=== PATIENT | female | born 1995 | race African-American/Black ===

== ENCOUNTER 2017-08-14 21:04 | Inpatient (IN) | payer OTHER ==
[2017-08-14] MEDS ORDERED: Oxytocin/0.9 % Sodium Chloride 30 UNIT/500 ML BAG IV SCH (23:45)
[2017-08-14] MEDS ORDERED: Lactated Ringers 1,000 ML IV SCH (23:45)
[2017-08-14] MEDS ORDERED: Lidocaine 1% 50 ML MDV INJECT PRN (23:51)
[2017-08-14] MEDS ORDERED: Sodium Chloride 0.9% 10 ML Syringe FLUSH PRN (23:51)
[2017-08-14] MEDS ORDERED: Sodium Chloride 0.9% 2.5 ML Syringe FLUSH PRN (23:51)
[2017-08-14] MEDS ORDERED: Misoprostol 200 MCG Tab PO PRN (23:51)
[2017-08-14] MEDS ORDERED: Water For Irrigation,Sterile 1,000 ML Container IRR PRN (23:51)
[2017-08-14] MEDS ORDERED: Butorphanol 1 MG/ML SDV IVPUSH PRN (23:51)
[2017-08-14] MEDS ORDERED: Nalbuphine 10 MG/1 ML Vial IVPUSH PRN (23:51)
[2017-08-14] MEDS ORDERED: Methylergonovine 0.2 MG/1 ML Amp IM PRN (23:51)
[2017-08-14] MEDS ORDERED: Carboprost Tromethamine 250 MCG/1 ML Amp IM PRN (23:51)
[2017-08-15] MEDS ORDERED: Ropivacaine 0.2% 2 MG/ML 20 ML SDV ONE (08:09)
[2017-08-15] MEDS ORDERED: Ropivacaine 100 ML ONE (08:09)
[2017-08-15] MEDS ORDERED: fentaNYL 100 MCG/2 ML SDV ONE (08:09)
--- NOTE | 2017-08-15 08:09 | PCM.LDHP ---
L&D History of Present Illness - General Date of Service: 08/15/17 Admit Problem/Dx: Patient Status Order with Admit Dx/Problem 08/14/17 23:52 Patient Status [ADT] Routine Admission Diagnosis/Problem Admission Diagnosis/Problem 08/15/17 08:06 22yo EDC 08/20/2017 39 2/7wks O+, RI, GBS neg. 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: Musculoskeletal History: Reports: None Neurological History: Reports: None Psychiatric History: Reports: None Endocrine/Metabolic History: Reports: None Hematologic History: Reports: None Immunologic History: Reports: None Oncologic (Cancer) History: Reports: None Dermatologic History: Reports: None - Infectious Disease History Infectious Disease History: Reports: None Social & Family History - Family History OBGYN: Reports: - Tobacco Use Smoking Status *Q: Never Smoker Second Hand Smoke Exposure: Yes - Caffeine Use Caffeine Use: Reports: Coffee, Soda, Tea - Recreational Drug Use Recreational Drug Use: No H&P Review of Systems - Review of Systems: Review Of Systems: See Below General: Reports: No Symptoms HEENT: Reports: No Symptoms Pulmonary: Reports: No Symptoms Cardiovascular: Reports: No Symptoms Gastrointestinal: Reports: No Symptoms Genitourinary: Reports: No Symptoms Musculoskeletal: Reports: No Symptoms Skin: Reports: No Symptoms Psychiatric: Reports: No Symptoms Neurological: Reports: No Symptoms Hematologic/Lymphatic: Reports: No Symptoms Immunologic: Reports: No Symptoms L&D Exam - Exam Exam: See Below - Vital Signs Weight: 72.756 kg - OB Specific Contraction Intensity: Moderate Movement: Active Heart Tones: Present Heart Rate (FHR) Variability: Moderate (6-25 bmp) Presentation: Vertex - Exam General: Alert, Oriented, Cooperative HEENT: Hearing Intact Lungs: Normal Respiratory Effort GI/Abdominal Exam: Soft, Non-Tender (gravid) Rectal Exam: Deferred Genitourinary: Normal external exam, Normal speculum exam, Cervical dilitation Back Exam: Full Range of Motion Extremities: Normal Range of Motion, Non-Tender, No Pedal Edema, Normal Capillary Refill Skin: Warm, Dry, Intact Neurological: Reflexes Equal Bilateral, Normal Speech, Normal Tone Psychiatric: Alert, Normal Affect, Normal Mood - Patient Data Lab Results Last 24 hrs: Laboratory Results - last 24 hr 08/15/17 08/15/17 Range/Units 00:35 00:35 WBC 6.79 (4.0-11.0) K/uL RBC 4.30 (4.30-5.90) M/uL Hgb 10.9 L (12.0-16.0) g/dL Hct 33.4 L (36.0-46.0) % MCV 77.7 L (80.0-98.0) fL MCH 25.3 L (27.0-32.0) pg MCHC 32.6 (31.0-37.0) g/dL RDW Std Deviation 41.3 (28.0-62.0) fl RDW Coeff of Campos 15 (11.0-15.0) % Plt Count 240 (150-400) K/uL MPV 10.20 (7.40-12.00) fL Nucleated RBC % 0.0 /100WBC Nucleated RBCs # 0 K/uL Blood Type O POSITIVE Antibody Screen NEGATIVE Result Diagrams: 08/15/17 00:35 - Problem List (1) Supervision of normal IUP (intrauterine ) in multigravida SNOMED Code(s): 773424864, 452528901 ICD Code: Z34.80 - ENCOUNTER FOR SUPRVSN OF NORMAL , UNSP TRIMESTER Status: Acute Priority: High Current Visit: Yes Qualifiers: Trimester: third trimester Qualified Code(s): Z34.83 - Encounter for supervision of other normal , third trimester Problem List Initiated/Reviewed/Updated: Yes Orders Last 24hrs: Active Orders 24 hr Category Date Time Status Patient Status [ADT] Routine ADT 08/14/17 23:52 Active Heart Tones [RC] CONTINUOUS Care 08/14/17 23:52 Active Non Stress Test [RC] PER UNIT ROUTINE Care 08/14/17 23:52 Active May Shower [RC] ASDIRECTED Care 08/14/17 23:52 Active Notify Provider [RC] PRN Care 08/14/17 23:52 Active Up ad Rubina [RC] ASDIRECTED Care 08/14/17 23:52 Active Vaginal Exam [RC] PRN Care 08/14/17 23:52 Active Vital Signs [RC] PER UNIT ROUTINE Care 08/14/17 23:52 Active Clear Liquid Diet [DIET] Diet 08/15/17 Breakfast Active Butorphanol [Stadol] Med 08/14/17 23:51 Active 1 mg IVPUSH Q1H PRN Carboprost Tromethamine [Hemabate DS] Med 08/14/17 23:51 Active 250 mcg IM ASDIRECTED PRN Lactated Ringers [Ringers, Lactated] 1,000 ml Med 08/14/17 23:45 Active IV ASDIRECTED Lidocaine 1% [Xylocaine 1%] Med 08/14/17 23:51 Active 50 ml INJECT .ONCE PRN Methylergonovine [Methergine] Med 08/14/17 23:51 Active 0.2 mg IM ASDIRECTED PRN Misoprostol [Cytotec] Med 08/14/17 23:51 Active 200 mcg PO .ONCE PRN Nalbuphine [Nubain] Med 08/14/17 23:51 Active 10 mg IVPUSH Q1H PRN Oxytocin/0.9 % Sodium Chloride [Oxytocin 30 Unit/500 ML Med 08/14/17 23:45 Active -NS] 30 unit in 500 ml IV TITRATE Sodium Chloride 0.9% [Saline Flush] Med 08/14/17 23:51 Active 10 ml FLUSH ASDIRECTED PRN Sodium Chloride 0.9% [Saline Flush] Med 08/14/17 23:51 Active 2.5 ml FLUSH ASDIRECTED PRN Water For Irrigation,Sterile [Sterile Water for Med 08/14/17 23:51 Active Irrigation] 1,000 ml IRR ASDIRECTED PRN Scalp Electrode [WOMSER] Per Unit Routine Oth 08/14/17 23:52 Ordered Peripheral IV Insertion Adult [OM.PC] Routine Oth 08/14/17 23:52 Ordered Resuscitation Status Routine Resus Stat 08/14/17 23:51 Ordered Medication Orders Butorphanol Tartrate (Stadol) 1 mg IVPUSH Q1H PRN PRN Reason: Pain Carboprost Tromethamine (Hemabate Ds) 250 mcg IM ASDIRECTED PRN PRN Reason: Post Hemorrhage Lactated Ringer's (Ringers, Lactated) 1,000 mls @ 150 mls/hr IV ASDIRECTED LAVELLE Oxytocin/Sodium Chloride (Oxytocin 30 Unit/500 Ml-Ns) 30 unit in 500 mls @ 999 mls/hr IV TITRATE [place] Lidocaine HCl (Xylocaine 1%) 50 ml INJECT .ONCE PRN PRN Reason: Laceration repair Methylergonovine Maleate (Methergine) 0.2 mg IM ASDIRECTED PRN PRN Reason: Post Hemorrhage Misoprostol (Cytotec) 200 mcg PO .ONCE PRN PRN Reason: Post Hemorrhage Nalbuphine HCl (Nubain) 10 mg IVPUSH Q1H PRN PRN Reason: Pain (severe 7-10) Sodium Chloride (Saline Flush) 10 ml FLUSH ASDIRECTED PRN PRN Reason: Keep Vein Open Sodium Chloride (Saline Flush) 2.5 ml FLUSH ASDIRECTED PRN PRN Reason: Keep Vein Open Sterile Water (Sterile Water For Irrigation) 1,000 ml IRR ASDIRECTED PRN PRN Reason: delivery Assessment/Plan Comment:: IOL A: 22yo EDC 08/20/2017 39 2/7wks O+, RI, GBS neg. IOL term P: Admit for IOL term , epidural prn, anticipate . Dr Chatman updated on pt status.
--- NOTE | 2017-08-15 08:49 | PCM.PREANE ---
Preanesthetic Assessment - Procedure Proposed Procedure: labor epidural - Anesthesia/Transfusion/Family Hx Anesthesia History: Prior Anesthesia Without Reaction (previous epidural) Family History of Anesthesia Reaction: No Transfusion History: No Prior Transfusion(s) Intubation History: Unknown - Review of Systems General: No Symptoms Pulmonary: No Symptoms Cardiovascular: No Symptoms Gastrointestinal: No Symptoms Neurological: No Symptoms Other: Reports: None - Physical Assessment NPO Status Date: 08/15/17 NPO Status Time: 08:48 (clear liquids) Height: 1.7 m Weight: 72.756 kg ASA Class: 2 Mental Status: Alert & Oriented x3 Airway Class: Mallampati = 1 Dentition: Reports: Normal Dentition Thyro-Mental Finger Breadths: 3 Mouth Opening Finger Breadths: 3 ROM/Head Extension: Full Lungs: Clear to Auscultation Cardiovascular: Regular Rate - Lab Values: Laboratory Last Values WBC 6.79 K/uL (4.0-11.0) 08/15/17 00:35 RBC 4.30 M/uL (4.30-5.90) 08/15/17 00:35 Hgb 10.9 g/dL (12.0-16.0) L 08/15/17 00:35 Hct 33.4 % (36.0-46.0) L 08/15/17 00:35 MCV 77.7 fL (80.0-98.0) L 08/15/17 00:35 MCH 25.3 pg (27.0-32.0) L 08/15/17 00:35 MCHC 32.6 g/dL (31.0-37.0) 08/15/17 00:35 RDW Std Deviation 41.3 fl (28.0-62.0) 08/15/17 00:35 RDW Coeff of Campos 15 % (11.0-15.0) 08/15/17 00:35 Plt Count 240 K/uL (150-400) 08/15/17 00:35 MPV 10.20 fL (7.40-12.00) 08/15/17 00:35 Nucleated RBC % 0.0 /100WBC 08/15/17 00:35 Nucleated RBCs # 0 K/uL 08/15/17 00:35 Blood Type O POSITIVE 08/15/17 00:35 Antibody Screen NEGATIVE 08/15/17 00:35 - Allergies Allergies/Adverse Reactions: Allergies Allergy/AdvReac Type Severity Reaction Status Date / Time No Known Allergies Allergy Verified 04/08/16 19:11 - Blood Blood Available: Yes Product(s) Available: PRBC - Anesthesia Plan Pre-Op Medication Ordered: None - Acknowledgements Anesthesia Type Planned: Epidural Pt an Appropriate Candidate for the Planned Anesthesia: Yes Alternatives and Risks of Anesthesia Discussed w Pt/Guardian: Yes Pt/Guardian Understands and Agrees with Anesthesia Plan: Yes PreAnesthesia Questionnaire HEENT History: Reports: None Cardiovascular History: Reports: None Respiratory History: Reports: None Gastrointestinal History: Reports: GERD Genitourinary History: Reports: None [employer] History: Reports: Musculoskeletal History: Reports: None Neurological History: Reports: None Psychiatric History: Reports: None Endocrine/Metabolic History: Reports: None Hematologic History: Reports: None Immunologic History: Reports: None Oncologic (Cancer) History: Reports: None Dermatologic History: Reports: None - Infectious Disease History Infectious Disease History: Reports: None - SUBSTANCE USE Smoking Status *Q: Never Smoker Second Hand Smoke Exposure: Yes Recreational Drug Use History: No - CURRENT (IN HOUSE) MEDS Current Meds: Current Medications Butorphanol Tartrate (Stadol) 1 mg IVPUSH Q1H PRN PRN Reason: Pain Carboprost Tromethamine (Hemabate Ds) 250 mcg IM ASDIRECTED PRN PRN Reason: Post Hemorrhage Lactated Ringer's (Ringers, Lactated) 1,000 mls @ 150 mls/hr IV ASDIRECTED [facility] Last Admin: 08/15/17 08:38 Dose: 150 mls/hr Oxytocin/Sodium Chloride (Oxytocin 30 Unit/500 Ml-Ns) 30 unit in 500 mls @ 999 mls/hr IV TITRATE [facility] Lidocaine HCl (Xylocaine 1%) 50 ml INJECT .ONCE PRN PRN Reason: Laceration repair Methylergonovine Maleate (Methergine) 0.2 mg IM ASDIRECTED PRN PRN Reason: Post Hemorrhage Misoprostol (Cytotec) 200 mcg PO .ONCE PRN PRN Reason: Post Hemorrhage Nalbuphine HCl (Nubain) 10 mg IVPUSH Q1H PRN PRN Reason: Pain (severe 7-10) Sodium Chloride (Saline Flush) 10 ml FLUSH ASDIRECTED PRN PRN Reason: Keep Vein Open Sodium Chloride (Saline Flush) 2.5 ml FLUSH ASDIRECTED PRN PRN Reason: Keep Vein Open Sterile Water (Sterile Water For Irrigation) 1,000 ml IRR ASDIRECTED PRN PRN Reason: delivery Discontinued Medications Fentanyl (Sublimaze) Confirm Administered Dose 300 mcg .ROUTE .STK-MED ONE Stop: 08/15/17 08:10 Ropivacaine (Naropin 0.2%) Confirm Administered Dose 100 mls @ as directed .ROUTE .STK-MED ONE Stop: 08/15/17 08:10 Ropivacaine (Naropin 0.2%) Confirm Administered Dose 20 ml .ROUTE .STK-MED ONE Stop: 08/15/17 08:10
--- NOTE | 2017-08-15 08:58 | PCM.PRNOTE ---
- Free Text/Narrative Note: asked to place epidural for labor pain. Pt identified and plan discussed. discussed risks and expectations including nerve pain, nerve damage, bleeding and unsuccessful epidural placement. Pt agrees to proceed. sitting up sterile betadine prep x 3 with sterile drape. 1% lidocaine injected SQ. Pt cries in pain with 26 gauge needle SQ. #17 touhy advanced with ANTONETTE saline at L4. pt crying uncontrollably with any movement. difficult to assess what she is feeling. counseled to cooperate so can assess between pressure pain and/ or paresthesia. Needle advanced to approximately 5 cm. no discernable paresthesia or heme. catheter placed easily to 10 cm at skin. test dose 3 ml 1.5% lidocaine with epinephrine 1:200,000. neg. reaction. pt supine, bolus with ropivicaine 0.2 % and fentanyl 100 mcg. total of 5 ml given in divided doses. Pt contractions far apart, but level noted to be t 10 bilat. PCEA started at 8 ml/hr of 0.2% ropivicaine and fentanyl 2 mcg/ml. bolus dosing set at 6 ml every 15 min with hourly lockout of 32 ml. PCEA education done.
[2017-08-15] MEDS ORDERED: Oxytocin/0.9 % Sodium Chloride 30 UNIT/500 ML BAG IV SCH (10:30)
[2017-08-15] MEDS ORDERED: Witch Hazel Medicated Pads 40/Jar TOP PRN (15:18)
[2017-08-15] MEDS ORDERED: Ibuprofen 400 MG Tab PO PRN (15:18)
[2017-08-15] MEDS ORDERED: Lanolin 100% Cream 7 GM Tube TOP PRN (15:18)
[2017-08-15] MEDS ORDERED: Docusate Sodium 100 MG Cap PO PRN (15:18)
[2017-08-15] MEDS ORDERED: Acetaminophen 500 MG Tab PO PRN ×2 (15:18)
[2017-08-15] MEDS ORDERED: Bisacodyl 10 MG Supp RECTAL PRN (15:18)
[2017-08-15] MEDS ORDERED: Benzocaine/Menthol 20%-0.5% Spray 78 GM Cannister TOP PRN (15:18)
--- NOTE | 2017-08-15 15:25 | PCM.DEL ---
L & D Note - General Info Date of Service: 08/15/17 Mother's Due Date: 08/20/17 - Delivery Note Labor: Augmented by Oxytocin Cervical Ripening Method: Misoprostil Delivery Outcome: Livebirth Delivery Method: Spontaneous Vaginal Delivery-Single Presentation: Vertex Nuchal Cord: None Anesthesia Type: Epidural Episiotomy Type: None Laceration: None Placenta: Intact, Spontaneous Cord: 3 Vessels Resuscitation Needed: No Score 1 min: 9 Score 5 min: 9 - General Info Date of Service: 08/15/17 Admission Dx/Problem (Free Text): Patient Status Order with Admit Dx/Problem 08/14/17 23:52 Patient Status [ADT] Routine Admission Diagnosis/Problem Admission Diagnosis/Problem 08/15/17 08:06 22yo EDC 08/20/2017 39 2/7wks O+, RI, GBS neg. IOL term Subjective Update: 22 year old female that is now a [id number] after of a term viable male . No complications during delivery. scores were 9 and 9 respectively at 1 and 5 minutes. Mother was RI, O+, GBS -. Functional Status: Reports: Pain Controlled - Review of Systems General: Reports: No Symptoms Pulmonary: Reports: No Symptoms Cardiovascular: Reports: No Symptoms Musculoskeletal: Reports: Other (bilateral leg paresthesia secondary to epidural ) Neurological: Reports: No Symptoms Psychiatric: Reports: No Symptoms - Patient Data Weight - Most Recent: 160 lb 6.4 oz Lab Results Last 24 Hours: Laboratory Results - last 24 hr 08/15/17 08/15/17 Range/Units 00:35 00:35 WBC 6.79 (4.0-11.0) K/uL RBC 4.30 (4.30-5.90) M/uL Hgb 10.9 L (12.0-16.0) g/dL Hct 33.4 L (36.0-46.0) % MCV 77.7 L (80.0-98.0) fL MCH 25.3 L (27.0-32.0) pg MCHC 32.6 (31.0-37.0) g/dL RDW Std Deviation 41.3 (28.0-62.0) fl RDW Coeff of Campos 15 (11.0-15.0) % Plt Count 240 (150-400) K/uL MPV 10.20 (7.40-12.00) fL Nucleated RBC % 0.0 /100WBC Nucleated RBCs # 0 K/uL Blood Type O POSITIVE Antibody Screen NEGATIVE Med Orders - Current: Current Medications Acetaminophen (Tylenol Extra Strength) 500 mg PO Q4H PRN PRN Reason: Pain Acetaminophen (Tylenol Extra Strength) 1,000 mg PO Q4H PRN PRN Reason: Pain Benzocaine/Menthol (Dermoplast Pain Relief 20%-0.5% [place]) 78 gm TOP ASDIRECTED PRN PRN Reason: Perineal Comfort Measure Bisacodyl (Dulcolax) 10 mg RECTAL .ONCE PRN PRN Reason: Constipation Docusate Sodium (Colace) 100 mg PO BID PRN PRN Reason: Constipation Emollient Ointment (Lansinoh Hpa) 0 gm TOP ASDIRECTED PRN PRN Reason: Sore Nipples Ibuprofen (Motrin) 400 mg PO Q4H PRN PRN Reason: Pain Ibuprofen (Motrin) 800 mg PO Q6H PRN PRN Reason: Pain Oxycodone HCl (Oxycodone) 5 mg PO Q2H PRN PRN Reason: Pain Witch Ozila (Tucks) 1 pad TOP ASDIRECTED PRN PRN Reason: comfort care Discontinued Medications Butorphanol Tartrate (Stadol) 1 mg IVPUSH Q1H PRN PRN Reason: Pain Carboprost Tromethamine (Hemabate Ds) 250 mcg IM ASDIRECTED PRN PRN Reason: Post Hemorrhage Fentanyl (Sublimaze) Confirm Administered Dose 300 mcg .ROUTE .STK-MED ONE Stop: 08/15/17 08:10 Lactated Ringer's (Ringers, Lactated) 1,000 mls @ 150 mls/hr IV ASDIRECTED LAVELLE Last Admin: 08/15/17 08:38 Dose: 150 mls/hr Oxytocin/Sodium Chloride (Oxytocin 30 Unit/500 Ml-Ns) 30 unit in 500 mls @ 999 mls/hr IV TITRATE LAVELLE Ropivacaine (Naropin 0.2%) Confirm Administered Dose 100 mls @ as directed .ROUTE .STK-MED ONE Stop: 08/15/17 08:10 Oxytocin/Sodium Chloride (Oxytocin 30 Unit/500 Ml-Ns) 30 unit in 500 mls @ 2 mls/hr IV TITRATE LAVELLE; 2 MUNITS/MIN PRN Reason: Protocol Last Infusion: 08/15/17 13:30 Dose: 12 munits/min, 12 mls/hr Lidocaine HCl (Xylocaine 1%) 50 ml INJECT .ONCE PRN PRN Reason: Laceration repair Methylergonovine Maleate (Methergine) 0.2 mg IM ASDIRECTED PRN PRN Reason: Post Hemorrhage Misoprostol (Cytotec) 200 mcg PO .ONCE PRN PRN Reason: Post Hemorrhage Nalbuphine HCl (Nubain) 10 mg IVPUSH Q1H PRN PRN Reason: Pain (severe 7-10) Ropivacaine (Naropin 0.2%) Confirm Administered Dose 20 ml .ROUTE .[facility] ONE Stop: 08/15/17 08:10 Sodium Chloride (Saline Flush) 10 ml FLUSH ASDIRECTED PRN PRN Reason: Keep Vein Open Sodium Chloride (Saline Flush) 2.5 ml FLUSH ASDIRECTED PRN PRN Reason: Keep Vein Open Sterile Water (Sterile Water For Irrigation) 1,000 ml IRR ASDIRECTED PRN PRN Reason: delivery - Exam General: Alert, Oriented, Cooperative, No Acute Distress Lungs: Normal Respiratory Effort Cardiovascular: Regular Rate, Regular Rhythm (Female) Exam: Normal External Exam, Normal Bimanual Exam Extremities: Normal Inspection, Normal Range of Motion Skin: Warm, Dry, Intact Neurological: No New Focal Deficit Psy/Mental Status: Alert, Normal Affect, Normal Mood - Problem List & Annotations (1) (normal spontaneous vaginal delivery) SNOMED Code(s): 11857827 Code(s): O80 - ENCOUNTER FOR FULL-TERM UNCOMPLICATED DELIVERY Status: Acute Priority: High Current Visit: Yes - Problem List Review Problem List Initiated/Reviewed/Updated: Yes - My Orders Last 24 Hours: My Active Orders 08/15/17 15:18 Patient Status [ADT] Routine May Shower [RC] ASDIRECTED Up ad Rubina [RC] ASDIRECTED Vital Signs [RC] PER UNIT ROUTINE Acetaminophen [Tylenol Extra Strength] 1,000 mg PO Q4H PRN Acetaminophen [Tylenol Extra Strength] 500 mg PO Q4H PRN Benzocaine/Menthol [Dermoplast Pain Relief 20%-0.5% [place]] 78 gm TOP ASDIRECTED PRN Bisacodyl [Dulcolax] 10 mg RECTAL .ONCE PRN Docusate Sodium [Colace] 100 mg PO BID PRN Ibuprofen [Motrin] 400 mg PO Q4H PRN Ibuprofen [Motrin] 800 mg PO Q6H PRN Lanolin [Lansinoh HPA] See Dose Instructions TOP ASDIRECTED PRN Witch Zoila [Tucks] 1 pad TOP ASDIRECTED PRN oxyCODONE 5 mg PO Q2H PRN Assess Lochia [WOMSER] Per Unit Routine Assess Uterine Involution [WOMSER] Per Unit Routine Peripheral IV Discontinue [OM.PC] Routine Resuscitation Status Routine 08/15/17 Lunch Regular Diet [DIET] - Plan Plan:: IOL A: 22yo EDC 08/20/2017 39 2/7wks O+, RI, GBS neg. IOL term P: Admit for IOL term , epidural prn, anticipate . Dr Chatman updated on pt status. Delivery: A: 22 year old female that is now a [id number] after of a term viable male . No complications during delivery. scores were 9 and 9 respectively at 1 and 5 minutes. Mother was RI, O+, GBS -. [place] was dried after delivery and immediately placed on mothers chest. Mother and were left bonding well. P: Routine post- care
--- NOTE | 2017-08-15 21:30 | PCM48HPAN ---
Post Anesthesia Note - EVALUATION WITHIN 48HRS OF ANESTHETIC Vital Signs in Normal Range: Yes Patient Participated in Evaluation: Yes Respiratory Function Stable: Yes Airway Patent: Yes Cardiovascular Function Stable: Yes Hydration Status Stable: Yes Pain Control Satisfactory: Yes Nausea and Vomiting Control Satisfactory: Yes Mental Status Recovered: Yes
[2017-08-15] MEDS: oxyCODONE 5 MG Tab PO PRN (23:25)
[2017-08-15] MEDS: Ibuprofen 800 MG Tab PO PRN (23:26)
[2017-08-16] MEDS: oxyCODONE 5 MG Tab PO PRN ×3 (04:33→14:45)
--- NOTE | 2017-08-16 07:30 | PCM.DCSUM1 ---
Discharge Summary - Hospital Course Free Text/Narrative:: Discharge home with . Follow up in 6 weeks for post . Come sooner if needed. - Discharge Data Discharge Date: 08/16/17 Discharge Disposition: Home, Self-Care 01 Condition: Good - Discharge Diagnosis/Problem(s) (1) Supervision of normal IUP (intrauterine ) in multigravida SNOMED Code(s): 351933646, 002403194 ICD Code: Z34.80 - ENCOUNTER FOR SUPRVSN OF NORMAL , UNSP TRIMESTER Status: Acute Priority: High Current Visit: Yes Qualifiers: Trimester: third trimester Qualified Code(s): Z34.83 - Encounter for supervision of other normal , third trimester (2) (normal spontaneous vaginal delivery) SNOMED Code(s): 23004278 ICD Code: O80 - ENCOUNTER FOR FULL-TERM UNCOMPLICATED DELIVERY Status: Acute Priority: High Current Visit: Yes - Patient Instructions Diet: Usual Diet as Tolerated Activity: As Tolerated, No Strenuous Activities, Rest and Relax Today Driving: May Drive Today Showering/Bathing: May Shower Notify Provider of: Fever, Increased Pain, Swelling and Redness, Nausea and/or Vomiting Other/Special Instructions: Discharge home with infant. Follow up in 6 weeks for post . Come sooner if needed. - Discharge Plan Referrals: [facility] [Outside] Kim Pierce CNM [Mid-] - 09/19/17 3:00 pm - General Info Date of Service: 08/16/17 Admission Dx/Problem (Free Text: Patient Status Order with Admit Dx/Problem 08/14/17 23:52 Patient Status [ADT] Routine Admission Diagnosis/Problem Admission Diagnosis/Problem 08/15/17 08:06 22yo EDC 08/20/2017 39 2/7wks O+, RI, GBS neg. IOL term Subjective Update: 22 year old female that is now a [id number] after of a term viable male . No complications during delivery. scores were 9 and 9 respectively at 1 and 5 minutes. Mother was RI, O+, GBS -. Functional Status: Reports: Pain Controlled, Tolerating Diet, Ambulating, Urinating - Review of Systems General: Reports: No Symptoms HEENT: Reports: No Symptoms Pulmonary: Reports: No Symptoms Cardiovascular: Reports: No Symptoms Gastrointestinal: Reports: No Symptoms Genitourinary: Reports: No Symptoms Musculoskeletal: Reports: No Symptoms Skin: Reports: No Symptoms Neurological: Reports: No Symptoms Psychiatric: Reports: No Symptoms - Patient Data Vitals - Most Recent: Last Vital Signs Temp 36.6 C 08/16/17 04:00 Pulse 57 L 08/16/17 04:00 Resp 17 08/16/17 04:00 BP 107/58 L 08/16/17 04:00 Pulse Ox 96 08/15/17 20:00 Weight - Most Recent: 72.756 kg Med Orders - Current: Current Medications Acetaminophen (Tylenol Extra Strength) 500 mg PO Q4H PRN PRN Reason: Pain Last Admin: 08/16/17 04:32 Dose: 500 mg Acetaminophen (Tylenol Extra Strength) 1,000 mg PO Q4H PRN PRN Reason: Pain Benzocaine/Menthol (Dermoplast Pain Relief 20%-0.5% [place]) 78 gm TOP ASDIRECTED PRN PRN Reason: Perineal Comfort Measure Bisacodyl (Dulcolax) 10 mg RECTAL .ONCE PRN PRN Reason: Constipation Docusate Sodium (Colace) 100 mg PO BID PRN PRN Reason: Constipation Emollient Ointment (Lansinoh Hpa) 0 gm TOP ASDIRECTED PRN PRN Reason: Sore Nipples Ibuprofen (Motrin) 400 mg PO Q4H PRN PRN Reason: Pain Ibuprofen (Motrin) 800 mg PO Q6H PRN PRN Reason: Pain Last Admin: 08/15/17 23:26 Dose: 800 mg Oxycodone HCl (Oxycodone) 5 mg PO Q2H PRN PRN Reason: Pain Last Admin: 08/16/17 04:33 Dose: 5 mg Witch Zoila (Tucks) 1 pad TOP ASDIRECTED PRN PRN Reason: comfort care Discontinued Medications Butorphanol Tartrate (Stadol) 1 mg IVPUSH Q1H PRN PRN Reason: Pain Carboprost Tromethamine (Hemabate Ds) 250 mcg IM ASDIRECTED PRN PRN Reason: Post Hemorrhage Fentanyl (Sublimaze) Confirm Administered Dose 300 mcg .ROUTE .STK-MED ONE Stop: 08/15/17 08:10 Lactated Ringer's (Ringers, Lactated) 1,000 mls @ 150 mls/hr IV ASDIRECTED LAVELLE Last Admin: 08/15/17 08:38 Dose: 150 mls/hr Oxytocin/Sodium Chloride (Oxytocin 30 Unit/500 Ml-Ns) 30 unit in 500 mls @ 999 mls/hr IV TITRATE LAVELLE Ropivacaine (Naropin 0.2%) Confirm Administered Dose 100 mls @ as directed .ROUTE .[employer]-MED ONE Stop: 08/15/17 08:10 Oxytocin/Sodium Chloride (Oxytocin 30 Unit/500 Ml-Ns) 30 unit in 500 mls @ 2 mls/hr IV TITRATE LAVELLE; 2 MUNITS/MIN PRN Reason: Protocol Last Infusion: 08/15/17 13:30 Dose: 12 munits/min, 12 mls/hr Lidocaine HCl (Xylocaine 1%) 50 ml INJECT .ONCE PRN PRN Reason: Laceration repair Methylergonovine Maleate (Methergine) 0.2 mg IM ASDIRECTED PRN PRN Reason: Post Hemorrhage Misoprostol (Cytotec) 200 mcg PO .ONCE PRN PRN Reason: Post Hemorrhage Nalbuphine HCl (Nubain) 10 mg IVPUSH Q1H PRN PRN Reason: Pain (severe 7-10) Ropivacaine (Naropin 0.2%) Confirm Administered Dose 20 ml .ROUTE .[employer] ONE Stop: 08/15/17 08:10 Sodium Chloride (Saline Flush) 10 ml FLUSH ASDIRECTED PRN PRN Reason: Keep Vein Open Sodium Chloride (Saline Flush) 2.5 ml FLUSH ASDIRECTED PRN PRN Reason: Keep Vein Open Sterile Water (Sterile Water For Irrigation) 1,000 ml IRR ASDIRECTED PRN PRN Reason: delivery - Exam General: Reports: Alert, Oriented, Cooperative, No Acute Distress Lungs: Reports: Normal Respiratory Effort GI/Abdominal Exam: Soft, Non-Tender, No Organomegaly, No Mass (Female) Exam: Vaginal Bleeding Rectal (Female) Exam: Deferred Back Exam: Reports: Full Range of Motion Extremities: Normal Range of Motion, Non-Tender, No Pedal Edema, Normal Capillary Refill Skin: Reports: Warm, Dry, Intact Wound/Incisions: Reports: Healing Well Neurological: Reports: No New Focal Deficit, Normal Speech, Normal Tone Psy/Mental Status: Reports: Alert, Normal Affect, Normal Mood *Q Meaningful Use (DIS) - VTE *Q VTE Criteria *Q: - Stroke *Q Stroke Criteria *Q: - AMI *Q AMI Criteria *Q:
[2017-08-16 08:15] VITALS: BP 101/53
[2017-08-16] MEDS: Ibuprofen 800 MG Tab PO PRN (11:38)
== END 2017-08-16 18:15 | disposition home or self-care (01) | DRG 775 ==
LOC: MW.OBCHECK 21:04 → MW.OB 21:06 → MW.OBCHECK 23:52 → MW.OB 23:52 → OBSVTOIN 08-15 14:51 → MW.OB 08-15 18:16
PROVIDERS: ADMIT Obstetrics & Gynecology; ATTEND Obstetrics & Gynecology
PROC: 10E0XZZ Delivery of Products of Conception, External Approach (ICD-10-PCS; principal; 2017-08-15)
PROC: 3E0P7VZ Introduction of Hormone into Female Reproductive, Via Natural or Artificial Opening (ICD-10-PCS; 2017-08-15)
PROC: 3E033VJ Introduction of Other Hormone into Peripheral Vein, Percutaneous Approach (ICD-10-PCS; 2017-08-15)
DX: O80 Encounter for full-term uncomplicated delivery (principal); Z3A.39 39 weeks gestation of pregnancy; Z37.0 Single live birth
CPT/HCPCS: 51702; 59025; 59409; 85027; 86850; 86900; 86901; A9270-GY; J2590; J7120